=== PATIENT | female | born 1990 | race African-American/Black ===

== ENCOUNTER 2024-08-24 08:16 | Outpatient (CLI) | payer OTHER | END 2024-08-24 08:17 | disposition home or self-care (01) | LOC: CSHSLEEP 08:16 | PROVIDERS: ATTEND Student in an Organized Health Care Education/Training Program | DX: G47.33 Obstructive sleep apnea (adult) (pediatric) (principal); R53.83 Other fatigue; R09.89 Other specified symptoms and signs involving the circulatory and respiratory systems; R51.9 Headache, unspecified; R41.9 Unspecified symptoms and signs involving cognitive functions and awareness; F32.A Depression, unspecified; F41.9 Anxiety disorder, unspecified; E66.9 Obesity, unspecified; Z68.37 Body mass index [BMI] 37.0-37.9, adult; R06.83 Snoring; R35.1 Nocturia; G47.10 Hypersomnia, unspecified | CPT/HCPCS: 95800 ==

== ENCOUNTER 2025-06-08 07:51 | Outpatient (CLI) | payer BC ==
[2025-06-08] MEDS ORDERED: Iopamidol 300 61% 100 ML VIAL FS ONE (10:29)
== END 2025-06-08 07:52 | disposition home or self-care (01) ==
LOC: CSHCT 07:51
PROVIDERS: ATTEND Surgery
DX: R10.33 Periumbilical pain (principal); Z98.890 Other specified postprocedural states; N89.9 Noninflammatory disorder of vagina, unspecified
CPT/HCPCS: 74177